=== PATIENT | male | born 1945 | race Caucasian/White ===

== ENCOUNTER 2017-07-15 15:49 | Emergency (ER) | payer OTHER, MEDICARE ==
[2017-07-15 15:58] VITALS: TEMP 97.5
[2017-07-15] MEDS ORDERED: GABAPENTIN 300 MG CAP PO ONE (16:36)
[2017-07-15] MEDS ORDERED: DEXAMETHASONE 4 MG/ML VIAL IVP ONE (16:36)
[2017-07-15] MEDS ORDERED: LIDOCAINE 5% 1 EA PATCH TD ONE (16:42)
--- NOTE | 2017-07-15 16:43 | EDPHY ---
H & P Stated Complaint: R HIP PAIN, GETTING WORSE Time Seen by Provider: 07/15/17 16:37 HPI/ROS: HPI: This is a 71-year-old male who presents with Chief Complaint: Right hip pain Location: Right lateral hip Quality: Aching pain Duration: Several weeks Signs and Symptoms: No bleeding, + radiation lower back into right buttock and right lateral hip/thigh no numbness, no weakness, no tingling, no incontinence, no decreased range of motion, + stiffness in the morning that resolves throughout the day Timing: Daily Severity: Moderate to severe Context: Patient complains of persistent right hip pain that radiates from the right lower back into the right buttock and right lateral hip and thigh area. The pain is worse in the morning and eases off throughout the day and after taking oral pain medication. He walks with a cane at baseline. He is followed by Dr. Richy Vasquez. He has a history of right total hip arthroplasty on 2015. He is scheduled for right knee replacement in August of this year. He also has a history of left knee replacement several years ago. Modifying Factors: mild relief by prednisone and hydrocodone 7.5 mg Comment: ROS: Constitutional: No fever, no chills, no weight loss Eyes: No blurred vision Respiratory: No shortness of breath, no cough Cardiovascular: No chest pain Gastrointestinal: No nausea, no vomiting no diarrhea Genitourinary: No dysuria Extremities: No myalgias Neurologic: No weakness, no numbness Skin: No rashes Hematologic: No bruising, no bleeding CONSTITUTIONAL: Pleasant elderly white male, nontoxic appearance, awake and alert, no obvious distress HEENT: Atraumatic and normocephalic, PERRL, EOMI. Tympanic membranes clear. Oropharynx clear, no exudate and moist pink mucosa. Airway patent. No lymphadenopathy. No meningismus. Cardiovascular: Normal S1/S2, regular rate, regular rhythm, without murmur rub or gallop. PULMONARY/CHEST: Symmetrical and nontender. Clear to auscultation bilaterally. Good air movement. No accessory muscle usage. ABDOMEN: Soft, nondistended, nontender, no rebound, no guarding, no peritoneal signs, no masses or organomegaly. No CVAT. EXTREMITIES: 2/2 pulses, right hip flexion 100, extension to 10, AB duction 15, 40 of internal and external rotation. Mild reproducible tenderness over the greater trochanter. Right hip shows well-healed posterior incision; leg lengths are relatively equal. no deformities, no clubbing, no cyanosis or edema. Right knee shows no effusion, moderate crepitus with extension, no joint line tenderness, stable varus and valgus exam. BACK: No lumbar paraspinous muscle reproducible tenderness, no paraspinous spasm, mild pain with right straight leg raise test. Lumbar flexion 45 with mild pain and extension is 20 with mild pain. NEUROLOGICAL: no focal neuro deficits. GCS 15. Ambulatory with the use of a cane which is his baseline. SKIN: Warm and dry, no erythema. no rash. Good capillary refill. Source: Patient Exam Limitations: No limitations - Personal History Current Tetanus Diphtheria and Acellular Pertussis (TDAP): Yes Tetanus Vaccine Date: <10 years - Medical/Surgical History Hx Asthma: No Hx Chronic Respiratory Disease: No Hx Diabetes: No Hx Cardiac Disease: No Hx Renal Disease: No Hx Cirrhosis: No Hx Alcoholism: No Hx HIV/AIDS: No Hx Splenectomy or Spleen Trauma: No Other PMH: Elevated cholesterol, bilat shoulder damage (rotator cuff damage), hypothyroid, L KNEE REPLACMENT, R HIP REPLACMENT, HAND SURGERY - Social History Smoking Status: Never smoked Additional Social History: . just recently underwent back surgery the summer. Constitutional: Initial Vital Signs Temperature (C) 36.4 C 07/15/17 15:55 Heart Rate 78 07/15/17 15:55 Respiratory Rate 18 07/15/17 15:55 Blood Pressure 133/83 H 07/15/17 15:55 O2 Sat (%) 95 07/15/17 15:55 O2 Delivery Mode Room Air Allergies/Adverse Reactions: No Known Allergies Allergy (Unverified 02/10/14 14:06) Home Medications: Medication Instructions Recorded Aspirin [Aspirin 81mg (*)] 81 mg PO HS 02/10/14 Atorvastatin Calcium [Lipitor 10 10 mg PO HS 02/10/14 mg (*)] Hydrocodone/Acetaminophen [[place] 1 each PO Q6 11/13/15 7.5-325 Tablet] Levothyroxine [Synthroid 25 mcg 25 mcg PO DAILY06 11/13/15 (*)] Temazepam [Restoril] 30 mg PO HS PRN 11/13/15 Acetaminophen [Tylenol 325mg (*)] 325 - 650 mg PO Q4 PRN #0 tab 11/15/15 Gabapentin [Neurontin 300 MG (*)] 300 mg PO HS #10 cap 07/15/17 Lidocaine 5% [Lidoderm 5% Patch 1 ea TD DAILY #10 patch 07/15/17 (*)] Prednisone 07/15/17 Medical Decision Making - Diagnostics Imaging Results: Imaging Impressions Knee X-Ray 07/15/17 16:35 Impression: 1. Mild medial compartment knee joint space narrowing with small marginal osteophytes stable in appearance. 2. Mild chondrocalcinosis. 3. Mild spurring at the MCL insertion medial distal femoral condyle stable in appearance. 4. Small effusion. Lumbar Spine X-Ray 07/15/17 16:35 Impression: 1. No acute osseous abnormality seen about the lumbar spine. 2. Degenerative disk disease with associated hypertrophic osteophytes mid to lower lumbar spine. 3. 5 mm of anterior subluxation of L5 on S1 probably related to facet hypertrophy. Pelvis X-Ray 07/15/17 16:35 Impression: 1. Right total hip replacement in good position and alignment. 2. Mild spurring about the left hip joint. ED Course/Re-evaluation: Lumbar sacral x-ray, right knee x-ray, pelvis x-ray, labs, and IV/oral/topical medications given Will evaluate for lumbar degenerative disc disease with radiculopathy. Given IV Decadron, oral gabapentin and topical Lidoderm patch with moderate relief No signs of neurovascular compromise/tenting of skin/compartment syndrome/ extremities and joints examined above and below area of concern and are neurovascularly intact. Leukocytosis is noted but I suspect this is steroid induced Lumbosacral x-ray reviewed by myself and show [id number] L2-L3-L3-L4 degenerative changes, mild L4-L5, and moderate narrowing at L5-S1. Pelvis x-ray reviewed by myself shows hardware in good alignment Right knee xray reviewed by myself shows [id number] degenerative changes 1755: Spoke with Dr. Richy Vasquez and reviewed all x-rays and lab results. He advises to have patient call his office in the morning and they will schedule an MRI lumbar outpatient to further evaluate. I did discuss that patient may be a candidate for lumbar DREW injections. Differential Diagnosis: Hip pain including lumbar radiculopathy, SI joint dysfunction, knee primary osteoarthritis, muscular strain. - Data Points Laboratory Results: Laboratory Results 07/15/17 17:00 07/15/17 07/15/17 17:00 17:00 WBC 14.63 10^3/uL H 10^3/uL (3.80-9.50) RBC 4.72 10^6/uL 10^6/uL (4.40-6.38) Hgb 15.2 g/dL g/dL (13.7-17.5) Hct 44.3 % % (40.0-51.0) MCV 93.9 fL fL (81.5-99.8) MCH 32.2 pg pg (27.9-34.1) MCHC 34.3 g/dL g/dL (32.4-36.7) RDW 12.6 % % (11.5-15.2) Plt Count 254 10^3/uL 10^3/uL (150-400) MPV 9.1 fL fL (8.7-11.7) Neut % (Auto) 81.4 % H % (39.3-74.2) Lymph % (Auto) 12.1 % L % (15.0-45.0) [place] % (Auto) 5.5 % % (4.5-13.0) Eos % (Auto) 0.0 % L % (0.6-7.6) Baso % (Auto) 0.1 % L % (0.3-1.7) Nucleat RBC Rel Count 0.0 % % (0.0-0.2) Absolute Neuts (auto) 11.90 10^3/uL H 10^3/uL (1.70-6.50) Absolute Lymphs (auto) 1.77 10^3/uL 10^3/uL (1.00-3.00) Absolute Monos (auto) 0.81 10^3/uL H 10^3/uL (0.30-0.80) Absolute Eos (auto) 0.00 10^3/uL L 10^3/uL (0.03-0.40) Absolute Basos (auto) 0.02 10^3/uL 10^3/uL (0.02-0.10) Absolute Nucleated RBC 0.00 10^3/uL 10^3/uL (0-0.01) Immature Gran % 0.9 % % (0.0-1.1) Immature Gran # 0.13 10^3/uL H 10^3/uL (0.00-0.10) ESR 5 MM/HR MM/HR (0-20) C-Reactive Protein < 5.0 mg/L mg/L (<10.0) Medications Given: Lidocaine (Lidoderm 5%) 1 ea TD DAILY PATRICIA Stop: 01/12/18 08:59 Last Admin: 07/15/17 16:53 Dose: 1 ea Discontinued Medications Dexamethasone (Decadron Injection) 8 mg IVP EDNOW ONE Stop: 07/15/17 16:37 Last Admin: 07/15/17 16:54 Dose: 8 mg Gabapentin (Neurontin) 600 mg PO EDNOW ONE Stop: 07/15/17 16:37 Last Admin: 07/15/17 16:53 Dose: 600 mg Departure - Departure Disposition: Home, Routine, Self-Care Clinical Impression: Lumbar back pain with radiculopathy affecting right lower extremity, Lumbar degenerative disc disease Condition: Good Instructions: Lumbar Radiculopathy (ED), Degenerative Disc Disease (ED), Osteoarthritis (ED) Additional Instructions: Please call Dr. Vasquez's office in the morning. They will schedule you for follow -up appointment this week. It is recommended that you receive an MRI lumbar outpatient to further evaluate your lumbar degenerative disc disease. Take gabapentin at bedtime and use Lidoderm patches in the area of greatest pain as needed. Use cane to aid in ambulation. Referrals: SHALONDA FLORENCE [Other] - As per Instructions Richy Vasquez MD [Medical Doctor] - As per Instructions Prescriptions: Gabapentin [Neurontin 300 MG (*)] 300 mg PO HS #10 cap Lidocaine 5% [Lidoderm 5% Patch (*)] 1 ea TD DAILY #10 patch
[2017-07-15 17:13] LABS: % IMMATURE GRANULYOCYTES 0.9 % (0.0-1.1); ABSOLUTE IMMATURE GRANULOCYTES 0.13 10^3/uL (0.00-0.10); ADD DIFF? NO; ADD MORPH? NO; ADD SCAN? NO; ATYPICAL LYMPHOCYTE FLAG 0 (0-99); FRAGMENT RBC FLAG 0 (0-99); HEMATOCRIT 44.3 % (40.0-51.0); HEMOGLOBIN 15.2 g/dL (13.7-17.5); LEFT SHIFT FLG 0 (0-99); LIPEMIA HEMOLYSIS FLAG 90 (0-99); MEAN CELL HEMOGLOBIN 32.2 pg (27.9-34.1); MEAN CELL HEMOGLOBIN CONCENTR. 34.3 g/dL (32.4-36.7); MEAN CELL VOLUME 93.9 fL (81.5-99.8); MEAN PLATELET VOLUME 9.1 fL (8.7-11.7); PLATELET CLUMPS FLAG 0 (0-99); PLATELET COUNT 254 10^3/uL (150-400); RED BLOOD CELL COUNT 4.72 10^6/uL (4.40-6.38); RED CELL DISTRIBUTION WIDTH 12.6 % (11.5-15.2)
[2017-07-15 17:45] LABS: SEDIMENTATION RATE 5 MM/HR (0-20)
[2017-07-15 18:29] VITALS: BP 137/89; PULSE 69; RESP 16; O2SAT 96
[2017-07-15] MEDS ORDERED: PATCH REMOVAL 1 EA PATCH TD SCH (21:00)
[2017-07-16] MEDS ORDERED: LIDOCAINE 5% 1 EA PATCH TD SCH (09:00)
== END 2017-07-15 18:28 | disposition home or self-care (01) ==
DX: M51.36 Other intervertebral disc degeneration, lumbar region (principal); M54.16 Radiculopathy, lumbar region; Z79.82 Long term (current) use of aspirin
CPT/HCPCS: 72100; 72170; 73562; 96374; 99284; J1100

== ENCOUNTER 2017-09-29 08:35 | Inpatient (IN) | payer OTHER, MEDICARE ==
--- NOTE | 2017-09-28 15:29 | GHP ---
[f rep st] PREOP HISTORY AND PHYSICAL DATE OF ADMISSION: 09/29/2017 HISTORY: Donte is a 71-year-old male, who presents with right knee pain. He has been followed throug h the years for significantly arthritic right knee especially the medial compartment which is bone-to -bone. He has tried appropriate medications. He has tried exercises and remained active. He has horan d viscosupplementation series. X-rays show right knee tricompartment osteoarthritis, most severe in the medial compartment. There is degenerative lipping, subchondral sclerosis and varus malalignment. He has limited motion and flexion contracture. He is limping and has an abnormal gait. His right knee is significantly impacting his quality of life and impacting other joints including hips and low back. A right total knee arthroplasty is planned. He has been followed by his side door worker. He recently had a false-positive treadmill test and this r esulted in a cardiac cath. I received a message from his side door worker that there is minimal plaque a nd his coronary arteries overall look pretty good. He is cleared for surgery. He was scheduled for his right knee arthroplasty recently, about 2 weeks ago. He had been using a Ne oprene brace and developed what looks like a contact dermatitis, but it was reddened enough that I po stponed his surgery for the skin to clear. He has been followed by his primary care physician, has u sed some ointments and skin on recent inspection in the office looks markedly improved and he is to p roceed. ALLERGIES: No known drug allergies. SOCIAL HISTORY: He has never been a smoker. PAST SURGICAL HISTORY: Ligament repair of his hand, 2015. He has had a right total hip arthroplasty in 2015. Left total knee arthroplasty in 2013. He has had a knee scope in 2012. Herniorrhaphy in . MEDICATIONS: Atorvastatin 20 mg p.o. daily. He is using levothyroxine 50 mcg p.o. daily, meloxicam 7.5 mg p.o. daily, gabapentin 200 mg daily, temazepam 30 mg tablets on a p.r.n. basis. REVIEW OF SYSTEMS: Review of systems is positive for hypothyroid and elevated cholesterol. PHYSICAL EXAMINATION: GENERAL: Patient is a well-developed, well-nourished male, in no apparent dis tress. HEAD AND NECK: Normocephalic, atraumatic. CHEST: Clear. CARDIOVASCULAR: Regular rate and rhythm. ABDOMEN: Soft. NEUROLOGIC: He is alert and oriented x3. EXTREMITIES: On examination of the right knee, he has a flexion contracture of about 5 degrees. He has flexion to about 120 degrees . He has varus malalignment. He has tenderness throughout the joint, especially medial joint line. SKIN/NEUROVASCULAR: Intact, including the area of dermatitis which is largely cleared. IMPRESSION: Right knee osteoarthritis. PLAN: Right total knee arthroplasty. Benefits and risks of surgery have been reviewed. He understa nds that the risks include infection, damage to blood vessels or nerves, failure or loosening of the components and need for revision, blood clot in the leg or lungs, bleeding and need for a transfusion . He is aware of the rigorous nature of the rehabilitation, has done well with his other total joint s. He has signed his consent form and wishes to proceed. /[id number]/MODL
[~2017-09-29 08:35] MED LIST: NS IV ONE; POVIDONE-IODINE 20 ML in SODIUM CL IRRIG SOLUTION 500 ML IRR ONE; ROPIVACAINE 0.2% 80 MG, EPINEPHrine 0.2 MG, KETOROLAC TROMETHAMINE 30 MG in BAG 0 ML IU ONE; TRANEXAMIC ACID 1 MG in NS 100 ML IV ONE; TRANEXAMIC ACID IV ONE; ceFAZolin 1 GM/5 ML SYR ONE
[2017-09-29] MEDS ORDERED: DEXAMETHASONE 4 MG/ML VIAL IVP ONE (08:55)
[2017-09-29] MEDS ORDERED: ACETAMINOPHEN 325 MG TAB PO ONE (08:55)
[2017-09-29] MEDS ORDERED: ceFAZolin 2 GM/SWFI 2 GM/20 ML SYR IVP ONE (08:55)
[2017-09-29] MEDS ORDERED: LR 1,000 ML IV ONE (08:55)
[2017-09-29] MEDS ORDERED: FAMOTIDINE 20 MG TAB PO ONE (08:55)
[2017-09-29] MEDS ORDERED: LIDOCAINE 1% 2 ML INJ ID PRN (08:55)
[2017-09-29] MEDS ORDERED: MIDAZOLAM 2 MG/2 ML VIAL ONE (09:53)
[2017-09-29] MEDS ORDERED: NALOXONE HCL 0.4 MG/ML INJ IVP PRN (10:00)
[2017-09-29] MEDS ORDERED: HYDROmorphONE/DILAUDID 1 MG/ML INJ IVP PRN (10:00)
[2017-09-29] MEDS ORDERED: ALBUTEROL 3 ML DEYVIAL IH PRN (10:00)
[2017-09-29] MEDS ORDERED: ONDANSETRON 4 MG/2 ML VIAL IVP PRN ×2 (10:00→12:07)
[2017-09-29] MEDS ORDERED: MIDAZOLAM 2 MG/2 ML VIAL IVP ONE (10:00)
[2017-09-29] MEDS ORDERED: OXYCODONE/APAP 5/325 TAB PO PRN (10:00)
--- NOTE | 2017-09-29 10:03 | PDANEPAE ---
ANE History of Present Illness R TKA ANE Past Medical History - Cardiovascular History Hx Hypertension: No Hx Arrhythmias: No Hx Chest Pain: No Hx Coronary Artery / Peripheral Vascular Disease: No Hx CHF / Valvular Disease: No Hx Palpitations: No - Pulmonary History Hx COPD: No Hx Asthma/Reactive Airway Disease: No Hx Recent Upper Respiratory Infection: No Hx Oxygen in Use at Home: No Hx Sleep Apnea: No Sleep Apnea Screening Result - Last Documented: Positive Pulmonary History Comment: URI on ABX - Neurologic History Hx Cerebrovascular Accident: No Hx Seizures: No Hx Dementia: No Neurologic History Comment: CONCUSSION WITH LOC 1968, 1977 - Endocrine History Hx Diabetes: No - Renal History Hx Renal Disorders: No Renal History Comment: increased urinary frequency - Liver History Hx Hepatic Disorders: No - Neurological & Psychiatric Hx Hx Neurological and Psychiatric Disorders: No - Cancer History Hx Cancer: No - Congenital Disorder History Hx Congenital Disorders: Yes Congenital History Comment: R eye blind at - GI History Hx Gastrointestinal Disorders: No Gastrointestinal History Comment: norm. colonoscopy in past - Other Health History Other Health History: R eye blind since , slight hearing loss. arthritis in joints. steroid inj. both shoulders in past with relief. chipped teeth, perm. bridge - Chronic Pain History Chronic Pain: Yes (LEFT SHOULDER) - Surgical History Prior Surgeries: LT TOTAL KNEE 2013. L knee scope 10/08. nasal surg 1971. L eye cataract 1997 ANE Review of Systems Review of Systems: - Exercise capacity METS (RN): 4 METS ANE Patient History - Allergies Allergies/Adverse Reactions: prednisone Allergy (Intermediate, Verified 08/25/17 10:42) Itching,rash - Home Medications Home Medications: Aspirin [Aspirin 81mg (*)] 81 mg PO HS 02/10/14 [Last Taken 09/23/17] Atorvastatin Calcium [Lipitor 10 mg (*)] 10 mg PO HS 02/10/14 [Last Taken ] Hydrocodone/Acetaminophen [[place] 7.5-325 Tablet] 1 each PO Q6 PRN 11/13/15 [ Last Taken 11/13/15 05:00] Levothyroxine [Synthroid 25 mcg (*)] 25 mcg PO DAILY06 11/13/15 [Last Taken 02/10 06:00] Temazepam [Restoril] 30 mg PO HS PRN 11/13/15 [Last Taken 09/28/17 23:55] Meloxicam [Mobic 7.5 mg] 7.5 mg PO HS 08/20/17 [Last Taken 09/25/17] oxyCODONE IR [Oxycodone Ir (*)] 10 mg PO TID PRN 08/20/17 [Last Taken 09/28/17 23:55] - NPO status NPO Since - Liquids (Date): 09/28/17 NPO Since - Liquids (Time): 23:55 NPO Since - Solids (Date): 09/28/17 NPO Since - Solids (Time): 23:00 - Smoking Hx Smoking Status: Never smoked - Family Anes Hx Family Hx Anesthesia Complications: no ANE Labs/Vital Signs - Vital Signs Blood Pressure: 112/76 Heart Rate: 80 Respiratory Rate: 16 O2 Sat (%): 96 Height: 165.1 cm Weight: 87.09 kg ANE Physical Exam - Airway Neck exam: FROM Mallampati Score: Class 2 - Pulmonary Pulmonary: clear to auscultation - Cardiovascular Cardiovascular: regular rate and rhythym - ASA Status ASA Status: II ANE Anesthesia Plan Anesthesia Plan: spinal Regional Anesthesia: adductor canal FNB Total IV Anesthesia: Yes
[2017-09-29] MEDS ORDERED: PROPOFOL/EMULSION 500 MG/50 ML BOTTLE IV ONE ×2 (10:16→10:26)
[2017-09-29] MEDS ORDERED: fentaNYL 100 MCG/2 ML INJ ONE ×2 (10:31→12:26)
[2017-09-29] MEDS ORDERED: PHENYLEPHRINE HCL 100 MCG/ML SYR ONE (11:18)
[2017-09-29] MEDS ORDERED: ROPIVACAINE HCL 150 MG/30 ML INJ ONE (11:18)
[2017-09-29] MEDS ORDERED: ONDANSETRON 4 MG/2 ML VIAL ONE (11:18)
[2017-09-29] MEDS ORDERED: METOCLOPRAMIDE 10 MG/2 ML VIAL IVP PRN (12:07)
[2017-09-29] MEDS ORDERED: LACTULOSE 20 GM/30 ML UDCUP PO PRN (12:07)
[2017-09-29] MEDS ORDERED: DIPHENOXYLATE/ATROPINE LOMOTIL 1 TAB PO PRN (12:07)
[2017-09-29] MEDS ORDERED: CYCLOBENZAPRINE 10 MG TAB PO PRN (12:07)
[2017-09-29] MEDS ORDERED: PROMETHAZINE HCL 25 MG/ML INJ IVP PRN (12:07)
[2017-09-29] MEDS ORDERED: MAGNESIUM HYDROXIDE 30 ML UDCUP PO PRN (12:07)
[2017-09-29] MEDS ORDERED: POLYETHYLENE GLYCOL 3350 17 GM PKT PO PRN (12:07)
[2017-09-29] MEDS ORDERED: BISACODYL 10 MG SUPP PR PRN (12:07)
[2017-09-29] MEDS ORDERED: TEMAZEPAM 15 MG CAP PO PRN (12:07)
[2017-09-29] MEDS ORDERED: diphenhydrAMINE 25 MG CAP PO PRN (12:07)
[2017-09-29] MEDS ORDERED: ONDANSETRON DISINTEGRATING 4 MG TAB PO PRN (12:07)
[2017-09-29] MEDS ORDERED: PROMETHAZINE HCL 25 MG SUPPR PR PRN (12:07)
[2017-09-29] MEDS ORDERED: LR 1,000 ML IV SCH (12:30)
[2017-09-29] MEDS: fentaNYL 100 MCG/2 ML INJ IVP PRN ×2 (12:31→12:48)
[2017-09-29] MEDS: KETOROLAC 30 MG/1 ML SDV IVP PRN ×2 (13:54→20:56)
--- NOTE | 2017-09-29 14:18 | GOP ---
[f rep st] OPERATIVE REPORT DATE OF OPERATION: 09/29/2017 SURGEON: Richy Vasquez MD DIE TRIPPER: Remington Villegas, CSFA, LSA. ANESTHESIOLOGIST: Taras Chambers DO PREOPERATIVE DIAGNOSIS: Right knee osteoarthritis. POSTOPERATIVE DIAGNOSIS: Right knee osteoarthritis. PROCEDURE PERFORMED: Right total knee arthroplasty. FINDINGS: SPECIMENS: Include excised bone. ESTIMATED BLOOD LOSS: Minimal. INDICATIONS: Donte is a 71-year-old male, who presents with history, exam and x-rays consistent with severe tricompartment right knee osteoarthritis. He has tried appropriate conservative measures, his knee continues to be symptomatic so a right total knee arthroplasty is planned. DESCRIPTION OF PROCEDURE: The patient was taken to the operating room and, in the seated position, Cody Chambers provided a spinal anesthetic, he received IV sedation. He received 2 g of IV Ancef as well as his first dose of tranexamic acid. A tourniquet was fit high on the right thigh and the right leg was prepped and draped out with chlorhexidine in the usual fashion. The limb was elevated, exsangui nated, tourniquet inflated to 275 mmHg. I made a longitudinal incision in the midline. I used a med ial parapatellar arthrotomy and inverted the patella. I measured its thickness at 25 mm. I removed 9 mm of cartilage and bone, sized the patella at a size 35. Drilled PEG holes and I checked the thic kness with the trial component in place and I had restored the thickness of the patella appropriately and rimming osteophytes were removed. The knee was then flexed with the patella inverted. I drilled a submersible pilot hole in the distal femur and I used an intramedullary alignment jig. Because of his 7-8 deg ree or so flexion contracture, I placed a 5 degree distal cut cutting block extra 2 mm of bone to acc ommodate the flexion contracture. I made a flat distal cut. I sized the femur at size 7. I used th e appropriate cutting blocks to add the anterior-posterior and chamfer cuts as well as the notch cuts for this bi-cruciate stabilized knee. On the tibia, I used an extramedullary guide, I placed digital marketing apprentice ior and lateral retractors. I adjusted for rotation posterior slope. I made a perpendicular cut pro ximal tibia at a minimum cut to accommodate the components. I sized this at a size 6. I dialed in t he rotation and completed the tibial prep. All the components were removed and I used jet lavage ant ibiotic irrigation, the bone surfaces were dried. Methylmethacrylate was used to apply all component s. After the methylmethacrylate had hardened, I did trial reductions. I found that the 9 mm spacer, insert, was fine so the cross-linked poly permanent liner was snapped into the tibial component. Th e knee then had appropriate extension, full extension, excellent roll back in flexion stability. The patella tracked appropriately. I infiltrated a joint cocktail. The tourniquet was let down after a bout 1 hour and 20 minutes. I did use a Betadine rinse and further jet lavage antibiotic solution. The arthrotomy was closed with interrupted [id number] sutures of 0 [place], subcu tissue with 2-0 Monocryl, and the skin with nikki. The wound was dressed with Betadine-soaked Adaptic, 4x4s, s terile Webril, and a long-leg DEREK stocking. There were no complications. DRAINS: None. INSTRUMENT COUNT: All counts were correct. TOURNIQUET TIME: About an hour and 20 minutes. My surgical oncologist was a medical necessity for this total knee replacement. SUMMARY OF COMPONENTS: This is a [employer] bi-cruciate stabilized knee, Oxinium femur , crosslink poly tibia insert, all components cemented. Femur size 7, tibia size 6, patella 35 mm. The insert 9 mm. /[id number]/MODL
[2017-09-29] MEDS: ceFAZolin 2 GM/DEXTROSE 100 ML IV SCH (18:21)
[2017-09-29] MEDS: ACETAMINOPHEN 325 MG TAB PO SCH ×2 (18:21→23:53)
[2017-09-29] MEDS: oxyCODONE IR 5 MG TAB PO PRN ×2 (18:24→21:24)
[2017-09-29] MEDS: SENNOSIDES/DOCUSATE SODIUM TAB PO SCH (20:56)
[2017-09-29] MEDS: FAMOTIDINE 20 MG TAB PO SCH (20:57)
[2017-09-29] MEDS ORDERED: ATORVASTATIN CALCIUM 10 MG TAB PO SCH (21:00)
[2017-09-29] MEDS ORDERED: GABAPENTIN 300 MG CAP PO SCH (21:00)
[2017-09-29] MEDS: ASPIRIN 325 MG TAB PO SCH (22:17)
[2017-09-30] MEDS: ceFAZolin 2 GM/DEXTROSE 100 ML IV SCH (01:15)
[2017-09-30] MEDS: oxyCODONE IR 5 MG TAB PO PRN ×3 (01:18→13:18)
[2017-09-30] MEDS: ACETAMINOPHEN 325 MG TAB PO SCH ×2 (05:03→13:22)
[2017-09-30 05:46] LABS: HEMATOCRIT 36.5 % (40.0-51.0); HEMOGLOBIN 12.7 g/dL (13.7-17.5)
[2017-09-30] MEDS ORDERED: LEVOTHYROXINE 25 MCG TAB PO SCH (06:00)
--- NOTE | 2017-09-30 08:09 | POSTANESTH ---
Post Anesthetic Evaluation Cardiovascular Status: Normal, Stable (Adductor Block Post-Op Elizabetal. Kent states his knee is pain free, no complaints and has ambulated without difficulty. No apparent anesthetic complications.)
--- NOTE | 2017-09-30 08:32 | SOAPPROG ---
SOAP Progress Note Assessment/Plan: Assessment: 09/30/17 POD#1 R TKA, Hct 36, pain controlled, dressing clean, has been up Plan: 09/30/17 08:30 PT/OT, likely home later today, home PT, oxy asa Objective: Vital Signs Temp Pulse Resp BP Pulse Ox 36.3 C 77 19 85/51 L 95 09/30/17 04:00 09/30/17 04:00 09/30/17 04:00 09/30/17 04:00 09/30/17 04:00 Laboratory Results 09/30/17 04:55 09/29/17 09/30/17 10/01/17 05:59 05:59 05:59 Intake Total 3682 Output Total 2425 Balance 1257 ICD10 Worksheet Patient Problems: Problems Problem Status Onset Arthritis of knee, left Acute Osteoarthritis of right hip Acute
--- NOTE | 2017-09-30 08:37 | PDIAF ---
- Diagnosis Code Status: Full Code - Medication Management Discharge Medications: Medications to Continue on Transfer Atorvastatin Calcium [Lipitor 10 mg (*)] 10 mg PO HS 02/10/14 [Last Taken ] Hydrocodone/Acetaminophen [[place] 7.5-325 Tablet] 1 each PO Q6 PRN 11/13/15 [ Last Taken 11/13/15 05:00] Levothyroxine [Synthroid 25 mcg (*)] 25 mcg PO DAILY06 11/13/15 [Last Taken 02/10 06:00] Temazepam [Restoril] 30 mg PO HS PRN 11/13/15 [Last Taken 09/28/17 23:55] Acetaminophen [Tylenol 325mg (*)] 325 - 650 mg PO Q4 PRN #0 tab 11/15/15 [Last Taken 09/22/17] Gabapentin [Neurontin 300 MG (*)] 300 mg PO HS #10 cap 07/15/17 [Last Taken 01/10 22:00] Meloxicam [Mobic 7.5 mg] 7.5 mg PO HS 08/20/17 [Last Taken 09/25/17] oxyCODONE IR [Oxycodone Ir (*)] 10 mg PO TID PRN 08/20/17 [Last Taken 09/28/17 23:55] Aspirin [Aspirin 325 mg (*)] 325 mg PO DAILY tab 09/30/17 [Last Taken Unknown] oxyCODONE IR [Oxycodone Ir (*)] 5 - 10 mg PO Q4 PRN #40 tab 09/30/17 [Last Taken Unknown] Discharge Medications: Refer to the Discharge Home Medication list for PRN reason. - Orders Services needed: Physical Therapy Isolation Type: None Diet Recommendation: no restrictions on diet Diet Texture: Regular Texture Diet Gerardo Stockings Discontinue Date: continue 2 weeks Wound Care Instructions: keep wound covered, lukomed Sutures/Nikki Site: inkki out in my office in 2 weeks Activity/Weight Bearing Restrictions: WBAT, FROM - Follow Up Care Current Providers and Referrals: NONE *PRIMARY CARE P,. [Primary Care Provider] -
[2017-09-30 08:56] VITALS: BP 86/64; PULSE 70; RESP 16; TEMP 97.7; O2SAT 98
[2017-09-30] MEDS: SENNOSIDES/DOCUSATE SODIUM TAB PO SCH (09:23)
[2017-09-30] MEDS: ASPIRIN 325 MG TAB PO SCH (09:23)
[2017-09-30] MEDS: FAMOTIDINE 20 MG TAB PO SCH (09:24)
--- NOTE | 2017-09-30 14:54 | ASMTCMCOM ---
CM Note CM Note Notes: OT clear pt for home, PT rec HHC vs outpatient. Pt interested in HHC. Pt medically stable for d/c with [facility], orders sent in [employer]. Date Signed: 09/30/2017 02:54 PM Electronically Signed By:CT Silva
--- NOTE | 2017-09-30 15:36 | ASDISCHSUM ---
Discharge Information Plan Status:Home with Home Health Medically Cleared to Leave: Discharge Date:09/30/2017 03:19 PM CM D/C Disposition:Home Health Service ADT D/C Disposition:Home Health Service Projected Discharge Date:09/30/2017 11:00 AM Transportation at D/C: Discharge Delay Reason: Follow-Up Date:09/30/2017 11:00 AM Discharge Slot: Final Diagnosis: Placement Information Referral Type:*Home Health Care Services Referral ID:[id number] Provider Name:[facility] [place] Address 1:[facility] [place] [address] Address 2: City:[place] Selection Factors: State:[place] Patient Contact Information Contact Name:FE Relationship: Address:[address] City:[place] Alternate Phone: State/Zip Code:[place] [address] Email: Financial Information Financial Class: Primary Plan Desc:MEDICARE INPATIENT Primary Plan Number:[id number] Secondary Plan Desc:[employer]/MDR SUPPLEMENT Secondary Plan Number:[id number] Assessment Information [facility] CM Progress Note CM Note CM Note Notes: OT clear pt for home, PT rec HHC vs outpatient. Pt interested in HHC. Pt medically stable for d/c with [facility], orders sent in [facility]. Date Signed: 09/30/2017 02:54 PM Electronically Signed By:CT Silva Intervention Information
== END 2017-09-30 15:19 | disposition home health service (06) | DRG 470 ==
LOC: F3N 08:35
PROVIDERS: ADMIT Orthopaedic Surgery; ATTEND Orthopaedic Surgery
PROC: 0SRC0J9 Replacement of Right Knee Joint with Synthetic Substitute, Cemented, Open Approach (ICD-10-PCS; principal; 2017-09-29 10:15)
DX: M17.11 Unilateral primary osteoarthritis, right knee (principal); Z96.641 Presence of right artificial hip joint; Z96.652 Presence of left artificial knee joint; E03.9 Hypothyroidism, unspecified; E78.00 Pure hypercholesterolemia, unspecified
CPT/HCPCS: 97110-GP; 97161-GP; 97165-GO; C1713; G8978-GP-CI; G8979-GP-CI; G8980-GP-CI; G8987-GO-CI; G8988-GO-CH; J0171; J0690; J1100; J1885; J2250; J2370; J2405; J2704; J2795; J3010